=== PATIENT | female | born 1960 | race Caucasian/White ===

== ENCOUNTER 2017-06-06 10:56 | Emergency (ER) | payer OTHER ==
[2017-06-06 14:02] VITALS: BP 146/76
== END 2017-06-06 14:02 | disposition home or self-care (01) ==
LOC: ED 10:56
DX: L29.9 Pruritus, unspecified (principal); E66.9 Obesity, unspecified; M45.9 Ankylosing spondylitis of unspecified sites in spine; I10 Essential (primary) hypertension
CPT/HCPCS: J1200; J2930

== ENCOUNTER 2020-09-16 20:39 | Emergency (ER) | payer OTHER ==
[~2020-09-16] VITALS: Ht 165.1 cm; Wt 79.4 kg
[2020-09-16 20:42] VITALS: Ht 165.1 cm; Wt 79.4 kg
[2020-09-16 21:16] LABS: BASOPHIL % 0.6 % (0-2); CALCIUM 9.2 mg/dL (8.5-10.1); CARBON DIOXIDE 29.8 mmol/L (21-32); CHLORIDE SERUM 105 mmol/L (98-107); GFR1 > 60 mL/min; GLUCOSE SERUM 156 mg/dL (74-106); PLATELET COUNT 282 x10^3mcL (130-400); POTASSIUM SERUM 3.9 mmol/L (3.5-5.1); RED CELL DISTRIBUTION WIDTH 14.3 % (11.5-14.5); SODIUM SERUM 139 mmol/L (136-145)
[2020-09-16 21:20] LABS: ALBUMIN 3.8 g/dL (3.4-5.0); ALKALINE PHOSPHATASE 98 U/L (46-116); ALT/SGPT 24 U/L (14-59); AST/SGOT 11 U/L (15-37); BILIRUBIN TOTAL 0.2 mg/dL (0.20-1.00); TOTAL PROTEIN, SERUM 7.2 g/dL (6.4-8.2)
[2020-09-17 00:31] VITALS: BP 120/67
== END 2020-09-17 00:31 | disposition home or self-care (01) ==
LOC: ED 20:39
PROVIDERS: Emergency Medicine
DX: R07.89 Other chest pain (principal); I10 Essential (primary) hypertension; Z90.710 Acquired absence of both cervix and uterus; Z88.2 Allergy status to sulfonamides; Z98.890 Other specified postprocedural states; Z88.8 Allergy status to other drugs, medicaments and biological substances